=== PATIENT | male | born 1965 | race Caucasian/White ===

== ENCOUNTER 2020-02-15 11:15 | Emergency (ER) | payer OTHER ==
[~2020-02-15] VITALS: Ht 175.3 cm; Wt 72.1 kg
[~2020-02-15 11:15] MED LIST: ALPR0.254 PO; AML5T PO; CARV6.2551 PO; CHOL20007 PO; CINA30TA2 PO; MAGN400T40 PO; MYCO1TAB2 PO; OMEP20CA74 PO; PRE5T PO; ROPI1TAB PO; SERT-274 PO; SIMV-8 PO; TACR1CAP19 OR; TACR1CAP4 PO
[2020-02-15 11:51] VITALS: BP 89/55
== END 2020-02-15 13:53 | disposition home or self-care (01) ==
LOC: ER 11:15
DX: G44.209 Tension-type headache, unspecified, not intractable (principal); I13.0 Hypertensive heart and chronic kidney disease with heart failure and stage 1 through stage 4 chronic kidney disease, or unspecified chronic kidney disease; N18.9 Chronic kidney disease, unspecified; I50.9 Heart failure, unspecified; F17.210 Nicotine dependence, cigarettes, uncomplicated; J44.9 Chronic obstructive pulmonary disease, unspecified; E78.5 Hyperlipidemia, unspecified; I25.2 Old myocardial infarction
CPT/HCPCS: 70450